=== PATIENT | male | born 1995 | race African-American/Black ===

== ENCOUNTER 2022-05-27 17:06 | Emergency (ER) | payer OTHER ==
[~2022-05-27] VITALS: Ht 203.2 cm; Wt 100.0 kg
[2022-05-27 17:14] VITALS: BP 122/67
[2022-05-27] MEDS ORDERED: TETRACAINE 0.5% OPHTH DROPS 4ML LEFTEYE ONE (17:45)
== END 2022-05-27 18:29 ==
LOC: ER 17:06
DX: Z02.89 Encounter for other administrative examinations (principal); Z77.098 Contact with and (suspected) exposure to other hazardous, chiefly nonmedicinal, chemicals
CPT/HCPCS: 99283